=== PATIENT | female | born 1990 | race Caucasian/White ===

== ENCOUNTER 2019-11-02 16:13 | Emergency (ER) | payer BC ==
[~2019-11-02] VITALS: Ht 170.2 cm; Wt 77.1 kg
[2019-11-02 16:13] VITALS: BP_SYST 120
--- NOTE | 2019-11-02 16:26 | NUR ---
AMBULATED TO BED 4. PATIENT STATES SHE AMOXICILLIN DOES NOT WORK AND DOES NOT WANT TO HAVE IT PRESCRIBED
--- NOTE | 2019-11-02 16:30 | NUR ---
Pt walked in to ER with c/o right breast pain and swelling. Pt is appox 1 month post . V/S stable, pt is afebrile. Currently sitting at bedside, will continue to monitor.
--- NOTE | 2019-11-02 16:35 | NUR ---
JERRELL Pineda at bedside examining patient.
--- NOTE | 2019-11-02 16:40 | NUR ---
Patient given written and verbal discharge instructions and verbalizes understanding. ER MD discussed with patient the results and treatment provided. Patient in stable condition. ID arm band removed. Rx of Keflex given. Patient educated on pain management and to follow up with PMD. Pain Scale 0. Opportunity for questions provided and answered. Medication side effect fact sheet provided.
[2019-11-02 17:28] VITALS: BP_SYST 120
== END 2019-11-02 17:28 | disposition home or self-care (01) ==
LOC: SED 16:13
DX: N64.59 Other signs and symptoms in breast (principal)
CPT/HCPCS: 99283